=== PATIENT | female | born 1955 | race Caucasian/White ===

== ENCOUNTER 2016-03-29 13:02 | Day surgery (SDC) | payer OTHER ==
[~2016-03-29] VITALS: Ht 165.1 cm; Wt 82.1 kg
[~2016-03-29 13:02] MED LIST: ATIVAN1 MG PO; BENADRYL25 MG PO; DYAZIDE, MA1 CAPSULE PO; ELAVIL25 MG PO; LORAZEPAM1 MG PO; MEPERITAB50 MG PO; METHOTREXATE2.5 MG PO; NIFEDICAL XL60 MG PO; SOMA350 MG PO; TOPROL XL100 MG PO; VITAMIN B122500 MCG PO; VITAMIN D5000 UNI1 PO; VITAMIN E400 UNIT PO; ZOCOR40 MG PO
[2016-03-29 13:32] VITALS: BP 160/91
[2016-03-29 16:35] VITALS: BP 161/72
[2016-03-29 17:20] VITALS: BP 161/83
== END 2016-03-29 17:24 | disposition home or self-care (01) ==
LOC: SDC 13:02
DX: L98.5 Mucinosis of the skin (principal); M89.8X4 Other specified disorders of bone, hand; I10 Essential (primary) hypertension; L40.50 Arthropathic psoriasis, unspecified; Z85.828 Personal history of other malignant neoplasm of skin; Z82.49 Family history of ischemic heart disease and other diseases of the circulatory system; Z83.3 Family history of diabetes mellitus; Z83.49 Family history of other endocrine, nutritional and metabolic diseases; Z82.61 Family history of arthritis; Z80.9 Family history of malignant neoplasm, unspecified
CPT/HCPCS: J0690; J2250; S0020

== ENCOUNTER → 2016-09-21 | Outpatient (CLI) | payer OTHER | END | disposition home or self-care (01) | LOC: CDC 11:04 | DX: M67.441 Ganglion, right hand (principal); M79.644 Pain in right finger(s); M19.041 Primary osteoarthritis, right hand; R94.31 Abnormal electrocardiogram [ECG] [EKG] | CPT/HCPCS: 93000 ==

== ENCOUNTER 2016-10-04 13:36 | Day surgery (SDC) | payer OTHER ==
[~2016-10-04] VITALS: Ht 165.1 cm; Wt 82.0 kg
[2016-10-04 14:00] VITALS: BP 151/75
[2016-10-04 17:15] VITALS: BP 157/64
[2016-10-04 17:52] VITALS: BP 135/65
== END 2016-10-04 18:00 | disposition home or self-care (01) ==
LOC: SDC 13:36
DX: M15.1 Heberden's nodes (with arthropathy) (principal); M25.841 Other specified joint disorders, right hand; I10 Essential (primary) hypertension; Z82.49 Family history of ischemic heart disease and other diseases of the circulatory system; Z83.3 Family history of diabetes mellitus; Z82.61 Family history of arthritis; Z85.828 Personal history of other malignant neoplasm of skin
CPT/HCPCS: 73140; 76000; J0131; J0690; J1170; J1885; J2250; J3010; S0020